=== PATIENT | female | born 1990 | race Caucasian/White ===

== ENCOUNTER → 2023-08-10 08:34 | Outpatient (CLI) | payer BC, SELFPAY ==
--- NOTE | ~2023-08-10 | CT_ITS ---
CT of the Abdomen and Pelvis: Indication: Microscopic hematuria Technique: 2.5 mm axial scans were obtained through the abdomen and pelvis prior to and following in travenous administration of 130 cc of Omnipaque 350. Dose reduction technique was used on this scan b y utilizing automated exposure control and iterative reconstruction technique. The dose-length produc t (DLP) was 1452.98 mGy-cm. Findings: Scans through the lung bases are unremarkable. There is a 1.8 cm lesion in the right hepatic lobe which is hypodense on precontrast images, with dif fuse postcontrast enhancement, possibly flash filling hemangioma. The spleen, pancreas, gallbladder, and adrenal glands are within normal limits. There are small nonobstructing right renal stones measur ing up to 2-3 mm. Punctate nonobstructing left renal stone present. No evidence of aortic aneurysm. No lymphadenopathy. No bowel obstruction or bowel wall thickening. There is no evidence to suggest acute appendicitis. Images through the pelvis were performed. Urinary bladder unremarkable. No pelvic mass identified. No ascites. Impression: Small bilateral nonobstructing renal stones, as detailed above. Reviewed, dictated and finalized at location . STER HAND Impression: Small bilateral nonobstructing renal stones, as detailed above.
--- NOTE | ~2023-08-10 | XR_ITS ---
XR abdomen/kub 1V 08/10/2023 08:57 INDICATION: Hematuria TECHNIQUE: KUB COMPARISON: None FINDINGS: Bowel gas pattern is normal. There is no evidence of free air, mass, organomegaly, ascites or obstruction. There are possible bilateral renal stones, although kidneys obscured by bowel conten t. There are pelvic phleboliths.. The bones appear intact. IMPRESSION: 1: Possible bilateral nephrolithiasis. Recommend correlation with CT.. Reviewed, dictated and finalized at location B. TE DIRECTOR
== END ==
PROVIDERS: PCP Urology; Visit Provider Urology
DX: R31.29 Other microscopic hematuria (principal); N20.0 Calculus of kidney
CPT/HCPCS: 74018; 74178; Q9967

== ENCOUNTER 2024-10-04 09:55 | Outpatient (CLI) | payer BC, SELFPAY ==
--- NOTE | ~2024-10-04 | XR_ITS ---
EXAMINATION: XR abdomen/kub 1V DATE: 10/04/2024 10:17 INDICATION: Calcium kidney stone. Hematuria. TECHNIQUE: A supine view of the abdomen on 2 radiographs was obtained. COMPARISON: Abdomen radiographs 08/10/2023, CT abdomen and pelvis 08/10/2023 FINDINGS: There are no dilated loops of bowel. There are 3 mm and 5 mm stones in right kidney. There is a 2 mm stone in left kidney. There are phleboliths in the pelvis. IMPRESSION: 1. Bilateral kidney stones. Reviewed, dictated and finalized at location B. ONAL OPERATIONS DIRECTOR IMPRESSION: 1. Bilateral kidney stones.
== END 2024-10-04 09:56 | disposition home or self-care (01) ==
PROVIDERS: PCP Urology; Visit Provider Urology
DX: N20.0 Calculus of kidney (principal)
CPT/HCPCS: 74018